=== PATIENT | male | born 1975 | race Two or more races ===

== ENCOUNTER 2025-02-23 13:29 | Emergency (ER) | payer SELFPAY ==
[2025-02-23 13:30] VITALS: BMI 25.7
[2025-02-23 13:39] VITALS: BP 128/77; PULSE 74; RESP 18; TEMP 36.8; O2SAT 97; BMI 25.9
--- NOTE | 2025-02-23 13:44 | EDNOTE_ITS ---
ED Animal Bite RME/HPI General Chief Complaint: Animal Bite Stated Complaint: SPIDER BITE ON LFA X4 DAYS Time Seen by Provider: 02/23/25 13:43 Source: patient Arrival date/time: 02/23/25 13:29 49-year-old male with no known medical history presents to the emergency room with a chief complaint of a spider bite to his left forearm x 4 days Mode of arrival: ambulatory Limitations: no limitations Related Data Previous Rx's ?Medication ?Instructions ?Recorded sulfamethoxazole 800 1 tab PO BID #14 tabs mg-trimethoprim 160 mg tablet (Bactrim DS) Allergies Allergy/AdvReac Type Severity Reaction Status Date / Time No Known Allergies Allergy Verified 02/23/25 13:33 Review of Systems Review of Systems Systems Reviewed: All systems reviewed, normal except as documented Constitutional Constitutional: Reports system reviewed and no additional complaints, except as documented, Denies fatigue, Denies fever(s), Denies headache(s) and Denies weakness Eyes Eyes: Reports system reviewed and no additional complaints, except as documented, Denies blurry vision and Denies change in vision ENT Ears, Nose, Mouth, and Throat: Reports system reviewed and no additional complaints, except as documented, Denies otalgia, Denies headache(s), Denies nasal congestion, Denies throat swelling and Denies vertigo Cardiovascular Cardiovascular: Reports system reviewed and no additional complaints, except as documented, Denies chest pain, Denies dyspnea and Denies dyspnea on exertion Respiratory Respiratory: Reports system reviewed and no additional complaints, except as documented, Denies chest congestion, Denies cough, Denies dyspnea, Denies dyspnea on exertion and Denies wheezing Gastrointestinal Gastrointestinal: Reports system reviewed and no additional complaints, except as documented, Denies abdominal pain, Denies cramping, Denies nausea and Denies vomiting Genitourinary Genitourinary: Reports system reviewed and no additional complaints, except as documented, Denies dysuria and Denies hematuria Musculoskeletal Musculoskeletal: Reports system reviewed and no additional complaints, except as documented and Denies back pain Integumentary/Breasts Skin/Breast: Reports system reviewed and no additional complaints, except as documented, Reports rash and Reports wounds Neurologic Neurologic: Reports system reviewed and no additional complaints, except as documented, Denies confusion, Denies headache(s), Denies lack of coordination, Denies vertigo and Denies weakness Psychiatric Psychiatric: Reports system reviewed and no additional complaints, except as documented, Denies anxiety, Denies confusion, Denies depression, Denies paranoia, Denies suicidal ideation and Denies tactile hallucinations Endocrine Endocrine: Reports system reviewed and no additional complaints, except as documented and Denies fatigue Hematologic/Lymphatic Hematologic/Lymphatic: Reports system reviewed and no additional complaints, except as documented and Denies lymphadenopathy Allergic/Immunologic Allergic/Immunologic: Reports system reviewed and no additional complaints, except as documented, Denies throat swelling, Denies urticaria and Denies wheezing Past Medical History Social History SMOKING STATUS: Light (< 1 pack/day) ED Exam General Limitations: Present no limitations General appearance: Present alert and in no apparent distress Head Head exam: Present atraumatic Eye Eye exam: Present normal appearance, PERRL and EOMI ENT ENT exam: Present normal exam, normal oropharynx and mucous membranes moist Neck Neck exam: Present normal inspection, full ROM and trachea midline Chest Chest inspection: Present normal inspection and symmetric chest wall rise Respiratory Respiratory exam: Present normal lung sounds bilaterally Cardiovascular Cardiovascular exam: Present regular rate, normal rhythm and normal heart sounds Abdominal Exam Abdominal exam: Present soft and normal bowel sounds Extremities Exam Extremities exam: Present normal inspection and full ROM Back Exam Back exam: Present normal inspection and full ROM Neurological Exam Neurological exam: Present alert, oriented X3 and CN II-XII intact Psychiatric Psychiatric exam: Present normal affect and normal mood Skin Skin exam: Present warm, dry, intact and normal color Expanded Skin Exam Type of lesion: Present abscess and bite/sting Distribution: Present LUE Description: Present tenderness, erythematous, swelling, vesicular and discharge Body image: 2 1. 1.5 cm abscess to the left forearm. The area is erythemic warm to the touch and has discharge draining from it. An I&D will be completed Course Quality Measures none Orders Category Date Time Status Incision and Drainage Set Up X1 Care 02/23/25 13:42 Active Set Up Suture Tray STAT Care 02/23/25 13:42 Active Wound Care NOW Care 02/23/25 13:42 Active Clindamycin Vial [Cleocin vial] Med 02/23/25 13:49 Once 600 mg IM X1 ONE Lidocaine 1% 20 ml [Xylocaine 1% 20 ML] Med 02/23/25 13:42 Discontinued 20 ml INFL X1 ONE TET,DIP/PERT AC (Adult)-Tdap [Boostrix Adult (Tdap) Med 02/23/25 13:42 Discontinued Vacc] 0.5 ml IMI .ONCE ONE Vital Signs Vital signs: Vital Signs Temperature 98.2 F 02/23/25 13:39 Pulse Rate 74 02/23/25 13:39 Respiratory Rate 18 02/23/25 13:39 Blood Pressure 128/77 02/23/25 13:39 Pulse Oximetry (%) 97 02/23/25 13:39 Oxygen Delivery Method Room Air 02/23/25 13:39 Animal Bite MDM Narrative MDM Narrative:: 49-year-old male with no known medical history presents to the emergency room with a chief complaint of a spider bite to his left forearm x 4 days Patient is hemodynamically stable and in no apparent distress. Patient is afebrile not tachycardic and not tachypneic. Physical examination shows a 3 cm abscess to the left forearm. Patient states this is a spider bite from 4 days ago. The area is swollen warm to the touch and is draining pus. You can see the patient has attempted to pick at it. PROCEDURE: incision and drainage of abscess in the left forearm PROCEDURE: A timeout protocol was performed prior to initiating the procedure. The area was prepared with Betadine and draped in the usual, sterile manner. The site was anesthetized with 1% lidocaine. A linear incision along the local skin lines was made and the purulent material expressed. The abscess was explored thoroughly and sequestered pockets were opened. Bleeding was minimal. Packing: none Followup: The patient tolerated the procedure well without complications. Standard post-procedure care is explained and patient was educated to follow-up with his primary care provider in the next 24 to 48 hours or return to the emergency room for any evidence of worsening signs or symptoms. Patient data External records reviewed:: [facility] previous records Clinical information provided by:: patient Social determinants that could affect healthcare access:: none Patient has the following chronic illnesses:: No chronic illness How is presenting disease/condition affected by chronic disease/condition?: no chronic disease Evaluation data The following diagnostics were reviewed and interpreted by me:: lab results and radiology exam(s) Lab and/or radiology exams considered but not ordered:: Labs and radiology exams considered and ordered Interpretation Summary: N/A Medications / Prescriptions Medications or Prescriptions considered but not ordered:: Medication given Medication administrations:: Medication Administration History Discontinued Medications Clindamycin Phosphate (Clindamycin Phos Inj 150 Mg/Ml Vial 6 Ml) 600 mg IM X1 ONE Stop: 02/23/25 13:50 Diphtheria/Tetanus/Acell Pertussis (Diphth,Pertuss(Acell),Tet Vac 0.5 Ml Syr- Adult) 0.5 ml IMi .ONCE ONE Stop: 02/23/25 13:43 Lidocaine HCl (Lidocaine Hcl 1% 20 Ml Vial) 20 ml INFL X1 ONE Stop: 02/23/25 13:43 Medication given Consultations Consultation(s) initiated? (list below): No Diagnosis Differential diagnosis animal bite: bite by animal, cat bite, dog bite and other (Subcutaneous abscess) Most likely diagnosis given after review of the tests above:: Subcutaneous abscess Admission Indicated Admission indicated?: not indicated Admission Request Was there a request for admission?: No Disposition Plan Disposition Plan: Discharge Discharge Attestation Discharge Attestation: The patient and all family members were given an opportunity to ask questions and understood the discharge instructions. Discharge instructions specifically effects, indications for sooner follow up or return to the emergency department, and the expected course of current diagnosis. Patient condition: Stable Discharge Plan Plan Patient Disposition: HOME (Self Care) Disposition Comment: Stable Prescriptions/Referrals Prescriptions/Med Rec: New sulfamethoxazole-trimethoprim [Bactrim DS] 800-160 mg tablet 1 tab PO BID Qty: 14 0RF Problem List Clinical Impression: Spider bite, Abscess of skin and subcutaneous tissue, Encounter for incision and drainage procedure Patient/Caregiver Discharge Instructions Education Materials: Abscess Drainage, ED Cellulitis Additional Instructions: Please follow-up with your primary care provider in the next 24 to 48 hours. The abscess in your left forearm was drained. Antibiotics are sent to your pharmacy please pick them up and take them as indicated. For any evidence of worsening signs or symptoms return to the emergency room immediately Print Language: [place]at[place] Stand Alone Forms: Amanda Award Info., Patient Portal Info Letter PA/STORE PROMOTER Supervising Physician PA/MATT Supervising Physician: Dr. Dewey
[2025-02-23] MEDS: LIDOCAINE HCL 1% 20 ML VIAL INFL (13:59)
[2025-02-23] MEDS: CLINDAMYCIN PHOS INJ 150 MG/ML VIAL 6 ML 600 MG IM (13:59)
[2025-02-23] MEDS: DIPHTH,PERTUSS(ACELL),TET VAC 0.5 ML SYR- ADULT IMi (14:00)
== END 2025-02-23 14:11 | disposition home or self-care (01) ==
LOC: SERX 14:01
PROVIDERS: Emergency Provider Family Medicine; PCP Nurse Practitioner Family
DX: T63.301A Toxic effect of unspecified spider venom, accidental (unintentional), initial encounter (principal); L02.414 Cutaneous abscess of left upper limb; Z23 Encounter for immunization
CPT/HCPCS: 10060; 90471; 90715; 96372; 99283; J0736; J3490